=== PATIENT | male | born 1985 | race African-American/Black ===

== ENCOUNTER 2021-06-05 01:50 | Emergency (ER) | payer MEDICAID ==
[~2021-06-05] VITALS: Ht 172.7 cm; Wt 66.0 kg
[2021-06-05 02:09] VITALS: BP 127/82
== END 2021-06-05 03:50 | disposition home or self-care (01) ==
LOC: ER 01:59
DX: R68.89 Other general symptoms and signs (principal); Z88.6 Allergy status to analgesic agent
CPT/HCPCS: 99283

== ENCOUNTER 2021-08-09 23:05 | Emergency (ER) | payer MEDICAID ==
[~2021-08-09] VITALS: Ht 172.7 cm; Wt 73.0 kg
[2021-08-09] MEDS ORDERED: HYDROCODONE/ACETAMINOPHEN 5/325MG TABLET PO STA (23:42)
[2021-08-10 00:03] LABS: BASOPHILS % 0.7 % (0.0-2.0); EOSINOPHILS % 1.5 % (0.0-5.0); HEMATOCRIT. 41.7 % (42.0-52.0); HEMOGLOBIN. 13.8 g/dL (14.0-18.0); LYMPHOCYTES % 40.1 % (20.0-50.0); MEAN CORPUSCULAR HEMOGLOBIN 28.3 pg (28.0-32.0); MEAN CORPUSCULAR VOLUME 85.4 fL (80.0-94.0); MEAN PLATELET VOLUME 7.6 fl (7.4-10.4); MONOCYTES % 10.1 % (2.0-8.0); NEUTROPHILS % 47.6 % (40.0-76.0); PLATELET 273 x1000/uL (130-400); RED BLOOD CELL COUNT 4.88 mill/uL (4.7-6.1)
[2021-08-10 00:21] LABS: CHLORIDE 107 mEq/L (98-107)
[2021-08-10 00:24] LABS: ETHANOL BLOOD < 10 mg/dL
[2021-08-10 00:38] VITALS: BP 118/75
== END 2021-08-10 00:59 | disposition home or self-care (01) ==
LOC: ER 23:05
DX: R10.12 Left upper quadrant pain (principal); R07.89 Other chest pain; R06.02 Shortness of breath
CPT/HCPCS: 36415; 71045; 80053; 80320; 85025; 93005; 99285; G0480

== ENCOUNTER 2021-08-10 06:23 | Emergency (ER) | payer MEDICAID | END 2021-08-10 07:38 | disposition left against medical advice (07) | LOC: ER 06:23 | DX: Z53.21 Procedure and treatment not carried out due to patient leaving prior to being seen by health care provider (principal) ==

== ENCOUNTER 2021-08-13 19:57 | Emergency (ER) | payer MEDICAID ==
[~2021-08-13] VITALS: Ht 167.6 cm; Wt 80.0 kg
[2021-08-13] MEDS ORDERED: ONDANSETRON HCL 4MG TABLET PO ONE (20:15)
[2021-08-13 20:20] VITALS: BP 124/77
== END 2021-08-13 21:28 | disposition left against medical advice (07) ==
LOC: ER 19:57
DX: R10.84 Generalized abdominal pain (principal)
CPT/HCPCS: 93005; 99283

== ENCOUNTER 2021-08-15 23:27 | Emergency (ER) | payer MEDICAID ==
[~2021-08-15] VITALS: Ht 182.9 cm; Wt 82.0 kg
[2021-08-15 23:32] VITALS: BP 118/72
[2021-08-16 00:34] LABS: BASOPHILS % 0.4 % (0.0-2.0); EOSINOPHILS % 8.8 % (0.0-5.0); HEMATOCRIT. 39.2 % (42.0-52.0); HEMOGLOBIN. 12.9 g/dL (14.0-18.0); LYMPHOCYTES % 31.4 % (20.0-50.0); MEAN CORPUSCULAR HEMOGLOBIN 28.3 pg (28.0-32.0); MEAN CORPUSCULAR VOLUME 85.7 fL (80.0-94.0); MEAN PLATELET VOLUME 8.1 fl (7.4-10.4); NEUTROPHILS % 48.4 % (40.0-76.0); PLATELET 284 x1000/uL (130-400); RED BLOOD CELL COUNT 4.57 mill/uL (4.7-6.1); RED CELL DISTRIBUTION WIDTH 14.2 % (11.6-14.6)
[2021-08-16 00:37] LABS: CHLORIDE 114 mEq/L (98-107)
== END 2021-08-16 01:30 | disposition home or self-care (01) ==
LOC: ER 23:27
DX: R07.89 Other chest pain (principal); M25.572 Pain in left ankle and joints of left foot; I10 Essential (primary) hypertension; Z88.6 Allergy status to analgesic agent
CPT/HCPCS: 36415; 71045; 73600; 80053; 84484; 85025; 93005; 99285

== ENCOUNTER 2022-07-05 18:15 | Emergency (ER) | payer MEDICAID ==
[~2022-07-05] VITALS: Ht 174 cm; Wt 73.0 kg
[2022-07-05 18:32] VITALS: BP 140/96
== END 2022-07-05 21:00 | disposition home or self-care (01) ==
LOC: ER 18:15
DX: M79.18 Myalgia, other site (principal); R00.0 Tachycardia, unspecified; Z20.822 Contact with and (suspected) exposure to COVID-19; I10 Essential (primary) hypertension; Z59.00 Homelessness unspecified
CPT/HCPCS: 71045; 87426; 93005; 99285; C9803